=== PATIENT | male | born 1955 | race Caucasian/White ===

== ENCOUNTER 2023-12-09 00:17 | Emergency (ER) | payer MEDICARE ==
[~2023-12-09] VITALS: Ht 162.6 cm; Wt 65.8 kg
[2023-12-09 00:20] VITALS: BP_SYST 126; PULSE 123; RESP 40; TEMP 98.6; O2SAT 96
[2023-12-09] MEDS: levETIRAcetam 1,000 MG in NS 90 ML IV ONE (00:43)
[2023-12-09 00:48] LABS: BASOPHILS # (AUTO) 0.1 K/uL (0.0-0.2); BASOPHILS % (AUTO) 0.3 % (0.0-2.0); HEMATOCRIT 38.8 % (36-54); HEMOGLOBIN 13.6 g/dL (14.0-18.0); LYMPHOCYTES # (AUTO) 0.6 K/uL (1.0-5.5); LYMPHOCYTES % (AUTO) 3.4 % (20.5-51.5); MEAN CORPUSCULAR HEMOGLOBIN 32 pg (27-31); MEAN CORPUSCULAR HGB CONC 35 % (32-36); MEAN CORPUSCULAR VOLUME 90 fL (79.0-98.0); MONOCYTES # (AUTO) 0.3 K/uL (0.0-1.0); NEUTROPHILS # (AUTO) 15.8 K/uL (1.8-7.7); NEUTROPHILS % (AUTO) 94.3 % (40.0-70.0); PLATELET COUNT (AUTO) 254 K/uL (130-430); RED BLOOD CELL COUNT(AUTO) 4.31 MIL/uL (4.2-6.2); RED CELL DISTRIBUTION WIDTH 14.6 % (9.0-15.0); WHITE BLOOD COUNT (AUTO) 16.8 K/uL (4.8-10.8)
[2023-12-09 01:03] LABS: CALCIUM 9.3 mg/dL (8.4-11.0); CREATININE 0.99 mg/dL (0.55-1.30); POTASSIUM 3.8 mmol/L (3.5-5.1)
[2023-12-09 04:44] VITALS: BP_SYST 129; PULSE 110; RESP 17; TEMP 98; O2SAT 98
== END 2023-12-09 04:44 | disposition short-term general hospital (02) ==
LOC: SED 00:17
DX: S01.81XA Laceration without foreign body of other part of head, initial encounter (principal); I60.8 Other nontraumatic subarachnoid hemorrhage; G40.802 Other epilepsy, not intractable, without status epilepticus; W18.39XA Other fall on same level, initial encounter; Y93.89 Activity, other specified; Y92.89 Other specified places as the place of occurrence of the external cause; Y99.8 Other external cause status
CPT/HCPCS: 99291; 96374; 70450; 80048; 85025; 36415; J1953